=== PATIENT | male | born 1970 | race Hispanic/Latino ===

== ENCOUNTER → 2017-11-09 | Outpatient (CLI) | payer OTHER, SELFPAY ==
--- NOTE | 2017-11-09 12:26 | DIREP ---
PROCEDURE:US ABDOMEN LIMITED(SINGLE ORGAN-QUAD) COMPARISON:None. INDICATIONS:PAIN FINDINGS: CBD:0.4 cm GALLBLADDER:0.3 cm RIGHT KIDNEY:10.5 x 5.9 x 4.8 cm PANCREAS:The pancreatic tail is obscured by bowel gas shadowing. LIVER:Normal hepatic parenchymal architecture. No focal hepatic lesion is identified. Hepatopetal flow in the portal vein. GALLBLADDER:There is sludge present in the dependent portion of the gallbladder. BILIARY:There is no biliary ductal dilatation. RIGHT KIDNEY:Normal. No hydronephrosis. OTHER:Negative. No ascites is identified. CONCLUSION:Sludge in dependent portion of gallbladder. Dictated by: SASKIA Physician on 11/09/2017 at 10:17 AM ld
== END | disposition home or self-care (01) ==
LOC: RAD 09:15
DX: K82.8 Other specified diseases of gallbladder (principal); M25.559 Pain in unspecified hip
CPT/HCPCS: 76705